=== PATIENT | female | born 1965 | race Caucasian/White ===

== ENCOUNTER 2016-06-04 14:53 | Emergency (ER) | payer OTHER ==
[2016-06-04 15:14] VITALS: BP 120/73
== END 2016-06-04 15:57 | disposition left against medical advice (07) ==
LOC: ED 14:53
DX: R07.89 Other chest pain (principal); R53.83 Other fatigue; M79.602 Pain in left arm; Z72.0 Tobacco use; Z53.21 Procedure and treatment not carried out due to patient leaving prior to being seen by health care provider
CPT/HCPCS: 93005; 93010